=== PATIENT | female | born 2000 | race Two or more races ===

== ENCOUNTER 2021-04-06 05:07 | Emergency (ER) | payer OTHER ==
[~2021-04-06] VITALS: Ht 157.5 cm; Wt 80.0 kg
[2021-04-06 06:15] VITALS: BP 110/64
[2021-04-06] MEDS ORDERED: IBUPROFEN 600 MG TABLET PO ONE (06:15)
== END 2021-04-06 07:10 | disposition home or self-care (01) ==
LOC: EMS 05:11
DX: S83.91XA Sprain of unspecified site of right knee, initial encounter (principal); F17.210 Nicotine dependence, cigarettes, uncomplicated; X50.1XXA Overexertion from prolonged static or awkward postures, initial encounter; Y93.89 Activity, other specified; Y92.89 Other specified places as the place of occurrence of the external cause; Y99.8 Other external cause status
CPT/HCPCS: 29505; 99283